=== PATIENT | male | born 1975 | race African-American/Black ===

== ENCOUNTER 2021-07-25 15:22 | Inpatient (IN) | payer OTHER ==
[2021-07-25 17:42] LABS: INR 1.1 (0.83-1.09); PROTHROMBIN TIME (PATIENT) 13.3 SEC (9.7-13.0)
[2021-07-25 17:44] LABS: BASO % 0.7 % (0-2.0); EOS % 6.2 % (0-4.5); LYMPH % 18.4 % (8-40); MCHC 32.3 g/dl (32.0-35.9); MEAN CELL VOLUME 86.5 fl (80-96); MEAN PLT VOLUME 9.1 fl (7.5-11.1); MONO % 14.8 % (3.8-10.2); NEUT % 59.9 % (42.8-82.8); PLATELET COUNT 220 10^3/uL (134-434); RBC 2.31 M/mm3 (4.00-5.60); RDW 18.3 % (11.9-15.9); WHITE BLOOD COUNT 5.8 K/mm3 (4.0-10.0)
[2021-07-25 17:46] LABS: HEMOGLOBIN 6.5 GM/dL (11.7-16.9)
[2021-07-25 17:55] LABS: CHLORIDE 101 mmol/L (98-107); SODIUM 139 mmol/L (136-145)
[2021-07-25 17:56] LABS: CALCIUM 9.8 mg/dL (8.5-10.1)
[2021-07-25 17:57] LABS: ALBUMIN 3.2 g/dl (3.4-5.0); ANION GAP 6 MMOL/L (8-16); CO2 32 mmol/L (21-32); GLUCOSE,RANDOM 140 mg/dL (74-106)
[2021-07-25 18:00] LABS: SGOT/AST 11 U/L (15-37); SGPT/ALT 25 U/L (13-61)
[2021-07-25 18:02] LABS: BILIRUBIN,TOTAL 0.3 mg/dL (0.2-1); TOT PROT 7.2 g/dl (6.4-8.2)
[2021-07-25 18:04] LABS: ALK PHOS 94 U/L (45-117); CREATININE 9.1 mg/dL (0.55-1.3)
[2021-07-25] MEDS ORDERED: METOPROLOL TARTRATE 50 MG TABLET (FP) PO ONE (19:49)
[2021-07-25] MEDS ORDERED: WARFARIN NA 3 MG TABLET PO SCH (20:00)
[2021-07-25] MEDS ORDERED: WARFARIN NA 1 MG TABLET ONE (20:16)
[2021-07-25] MEDS ORDERED: WARFARIN NA 5 MG TABLET ONE (20:16)
[2021-07-25] MEDS ORDERED: PANTOPRAZOLE 40 MG TABLET ONE (20:16)
[2021-07-25] MEDS ORDERED: LISINOPRIL 5 MG TABLET ONE (20:17)
[2021-07-25] MEDS ORDERED: METOPROLOL TARTRATE 50 MG TABLET (FP) ONE (20:17)
[2021-07-25] MEDS: LISINOPRIL 5 MG TABLET PO SCH (20:21)
[2021-07-25] MEDS: PANTOPRAZOLE 40 MG TABLET PO SCH (20:22)
[2021-07-25] MEDS: ATORVASTATIN CA 40 MG TABLET (FP) PO SCH (22:57)
[2021-07-26 05:56] VITALS: BMI 40.3
[2021-07-26] MEDS: INSULIN SLIDING SCALE (NOVOLOG) 1 VIAL SQ SCH ×3 (06:00→17:09)
[2021-07-26] MEDS ORDERED: INSULIN SLIDING SCALE (NOVOLOG) 1 VIAL SQ SCH (07:00)
[2021-07-26] MEDS ORDERED: glyBURIDE 5 MG TABLET PO SCH (07:00)
[2021-07-26] MEDS: PANTOPRAZOLE 40 MG TABLET PO SCH (09:18)
[2021-07-26] MEDS: LISINOPRIL 5 MG TABLET PO SCH (09:19)
[2021-07-26] MEDS ORDERED: SENNOSIDES 8.6MG TABLET (FP) PO PRN (09:31)
[2021-07-26] MEDS ORDERED: ASPIRIN 325 MG ENTERIC COATED TABLET (FP) PO SCH (10:00)
[2021-07-26] MEDS ORDERED: LISINOPRIL 5 MG TABLET PO SCH (10:00)
[2021-07-26] MEDS: POLYETHYLENE GLYCOL (HEALTHYLAX) 3350 17 GM PACKET PO SCH (11:02)
[2021-07-26] MEDS: SEVELAMER CARBONATE 800 MG TAB (FP) PO SCH ×2 (12:30→17:43)
[2021-07-26] MEDS: ASPIRIN COATED 81 MG TABLET.EC PO SCH (12:30)
[2021-07-26 13:21] LABS: BASO % 0.9 % (0-2.0); EOS % 7.8 % (0-4.5); HEMATOCRIT 23.5 % (35.4-49); HEMOGLOBIN 7.8 GM/dL (11.7-16.9); LYMPH % 18.2 % (8-40); MCH 28.2 pg (25.7-33.7); MEAN CELL VOLUME 85.4 fl (80-96); MONO % 13.8 % (3.8-10.2); NEUT % 59.3 % (42.8-82.8); PLATELET COUNT 218 10^3/uL (134-434); RBC 2.75 M/mm3 (4.00-5.60); RDW 18.5 % (11.9-15.9); WHITE BLOOD COUNT 6.7 K/mm3 (4.0-10.0)
[2021-07-26 14:05] LABS: CHLORIDE 101 mmol/L (98-107); SODIUM 138 mmol/L (136-145)
[2021-07-26 14:06] LABS: ANION GAP 7 MMOL/L (8-16); BLOOD UREA NITROGEN 50.8 mg/dL (7-18); CALCIUM 10.1 mg/dL (8.5-10.1); CO2 31 mmol/L (21-32)
[2021-07-26 14:07] LABS: GLUCOSE,RANDOM 105 mg/dL (74-106)
[2021-07-26 14:12] LABS: CREATININE 10.5 mg/dL (0.55-1.3)
[2021-07-26] MEDS ORDERED: WARFARIN NA 3 MG TABLET PO SCH (18:00)
[2021-07-26] MEDS: ATORVASTATIN CA 40 MG TABLET (FP) PO SCH (21:20)
[2021-07-27] MEDS: INSULIN SLIDING SCALE (NOVOLOG) 1 VIAL SQ SCH ×3 (06:03→16:43)
[2021-07-27] MEDS: SEVELAMER CARBONATE 800 MG TAB (FP) PO SCH ×3 (08:32→17:47)
[2021-07-27 09:33] LABS: BASO % 0.6 % (0-2.0); EOS % 7.4 % (0-4.5); HEMATOCRIT 21.2 % (35.4-49); LYMPH % 18.1 % (8-40); MCH 27.5 pg (25.7-33.7); MCHC 32.6 g/dl (32.0-35.9); MEAN CELL VOLUME 84.3 fl (80-96); MEAN PLT VOLUME 8.9 fl (7.5-11.1); MONO % 15.3 % (3.8-10.2); NEUT % 58.6 % (42.8-82.8); PLATELET COUNT 177 10^3/uL (134-434); RBC 2.51 M/mm3 (4.00-5.60); RDW 18.2 % (11.9-15.9); WHITE BLOOD COUNT 6.2 K/mm3 (4.0-10.0)
[2021-07-27 09:50] LABS: CHLORIDE 100 mmol/L (98-107); SODIUM 137 mmol/L (136-145)
[2021-07-27 09:53] LABS: BLOOD UREA NITROGEN 65.4 mg/dL (7-18); CALCIUM 9.4 mg/dL (8.5-10.1)
[2021-07-27 09:54] LABS: ANION GAP 7 MMOL/L (8-16); CO2 30 mmol/L (21-32); GLUCOSE,RANDOM 116 mg/dL (74-106); MAGNESIUM 2.7 mg/dL (1.8-2.4)
[2021-07-27 09:57] LABS: PHOSPHOROUS 6.4 mg/dL (2.5-4.9)
[2021-07-27 09:58] LABS: HEMOGLOBIN 6.9 GM/dL (11.7-16.9)
[2021-07-27 09:59] LABS: CREATININE 12.6 mg/dL (0.55-1.3)
[2021-07-27] MEDS ORDERED: SODIUM CHLORIDE 250 ML IV PRN (10:00)
[2021-07-27] MEDS ORDERED: EPOETIN ALFA-EPBX 20,000 UNIT/ML VIAL SQ ONE ×3 (10:00→10:45)
[2021-07-27] MEDS: POLYETHYLENE GLYCOL (HEALTHYLAX) 3350 17 GM PACKET PO SCH (10:15)
[2021-07-27] MEDS: PANTOPRAZOLE 40 MG TABLET PO SCH (10:15)
[2021-07-27] MEDS: ASPIRIN COATED 81 MG TABLET.EC PO SCH (10:15)
[2021-07-27] MEDS: LISINOPRIL 5 MG TABLET PO SCH (14:58)
[2021-07-27] MEDS: ATORVASTATIN CA 40 MG TABLET (FP) PO SCH (21:11)
[2021-07-28] MEDS: INSULIN SLIDING SCALE (NOVOLOG) 1 VIAL SQ SCH ×2 (06:09→11:11)
[2021-07-28 08:41] LABS: BASO % 0.5 % (0-2.0); EOS % 5.9 % (0-4.5); HEMOGLOBIN 8.7 GM/dL (11.7-16.9); LYMPH % 14.9 % (8-40); MCH 28.7 pg (25.7-33.7); MCHC 33.3 g/dl (32.0-35.9); MEAN PLT VOLUME 8.7 fl (7.5-11.1); MONO % 16.1 % (3.8-10.2); NEUT % 62.6 % (42.8-82.8); PLATELET COUNT 185 10^3/uL (134-434); RBC 3.02 M/mm3 (4.00-5.60); RDW 17.6 % (11.9-15.9)
[2021-07-28 09:09] LABS: CHLORIDE 102 mmol/L (98-107); SODIUM 140 mmol/L (136-145)
[2021-07-28] MEDS ORDERED: EPOETIN ALFA-EPBX 20,000 UNIT/ML VIAL SQ ONE (09:15)
[2021-07-28 09:25] LABS: ANION GAP 6 MMOL/L (8-16); CO2 32 mmol/L (21-32); GLUCOSE,RANDOM 113 mg/dL (74-106)
[2021-07-28 09:45] LABS: BLOOD UREA NITROGEN 36.9 mg/dL (7-18); CREATININE 8.8 mg/dL (0.55-1.3)
[2021-07-28] MEDS: SEVELAMER CARBONATE 800 MG TAB (FP) PO SCH ×2 (10:12→11:51)
[2021-07-28] MEDS: PANTOPRAZOLE 40 MG TABLET PO SCH (10:12)
[2021-07-28] MEDS: ASPIRIN COATED 81 MG TABLET.EC PO SCH (10:12)
[2021-07-28] MEDS: POLYETHYLENE GLYCOL (HEALTHYLAX) 3350 17 GM PACKET PO SCH (10:13)
[2021-07-28] MEDS: LISINOPRIL 5 MG TABLET PO SCH (10:13)
[2021-07-28 15:46] VITALS: BP 135/50; PULSE 74; TEMP 98.2
== END 2021-07-28 15:42 | DRG 811 ==
LOC: JER 15:22 → JERBED 18:18 → J5S 22:28
PROVIDERS: ADMIT Internal Medicine; ATTEND Internal Medicine
PROC: 30233N1 Transfusion of Nonautologous Red Blood Cells into Peripheral Vein, Percutaneous Approach (ICD-10-PCS; principal; 2021-07-25)
PROC: 5A1D70Z Performance of Urinary Filtration, Intermittent, Less than 6 Hours Per Day (ICD-10-PCS; 2021-07-27)
DX: D62 Acute posthemorrhagic anemia (principal); N18.6 End stage renal disease; Z68.41 Body mass index [BMI] 40.0-44.9, adult; I13.2 Hypertensive heart and chronic kidney disease with heart failure and with stage 5 chronic kidney disease, or end stage renal disease; E66.01 Morbid (severe) obesity due to excess calories; E11.22 Type 2 diabetes mellitus with diabetic chronic kidney disease; E78.5 Hyperlipidemia, unspecified; G47.33 Obstructive sleep apnea (adult) (pediatric); I50.9 Heart failure, unspecified; Z99.2 Dependence on renal dialysis
CPT/HCPCS: 36415; 36430; 71250-TC; 80048; 80053; 82272; 82728; 82962; 83540; 83550; 83735; 84100; 85025; 85610; 86803; 86850; 86900; 86901; 86922; 87340; 93005; 93010; 94660; 97116-GP; 97161-GP; 99285-25; C9803; P9058; U0003; U0005

== ENCOUNTER 2021-10-13 12:05 | Inpatient (IN) | payer OTHER ==
[2021-10-13 14:32] LABS: BASO % 0.5 % (0-2.0); EOS % 3.2 % (0-4.5); HEMATOCRIT 23.5 % (35.4-49); HEMOGLOBIN 7.5 GM/dL (11.7-16.9); LYMPH % 12.1 % (8-40); MCH 28.4 pg (25.7-33.7); MEAN CELL VOLUME 88.8 fl (80-96); MEAN PLT VOLUME 9.6 fl (7.5-11.1); MONO % 14.7 % (3.8-10.2); NEUT % 69.5 % (42.8-82.8); PLATELET COUNT 183 10^3/uL (134-434); RBC 2.65 M/mm3 (4.00-5.60); WHITE BLOOD COUNT 6.3 K/mm3 (4.0-10.0)
[2021-10-13 14:37] LABS: INR 3.73 (0.83-1.09); PROTHROMBIN TIME (PATIENT) 44.2 SEC (9.7-13.0)
[2021-10-13 14:56] LABS: CHLORIDE 100 mmol/L (98-107); SODIUM 140 mmol/L (136-145)
[2021-10-13 14:58] LABS: ALBUMIN 3.5 g/dl (3.4-5.0)
[2021-10-13 14:59] LABS: ANION GAP 6 MMOL/L (8-16); BLOOD UREA NITROGEN 48.3 mg/dL (7-18); CO2 35 mmol/L (21-32); GLUCOSE,RANDOM 53 mg/dL (74-106); MAGNESIUM 2.7 mg/dL (1.8-2.4)
[2021-10-13 15:01] LABS: SGPT/ALT 17 U/L (13-61)
[2021-10-13 15:02] LABS: SGOT/AST 8 U/L (15-37)
[2021-10-13 15:03] LABS: BILIRUBIN,TOTAL 0.4 mg/dL (0.2-1); TOT PROT 7.5 g/dl (6.4-8.2)
[2021-10-13 15:04] LABS: ALK PHOS 107 U/L (45-117)
[2021-10-13 15:07] LABS: CREATININE 10.5 mg/dL (0.55-1.3)
[2021-10-13] MEDS ORDERED: SENNOSIDES 8.6MG TABLET (FP) PO PRN (16:20)
[2021-10-13] MEDS ORDERED: PANTOPRAZOLE 40 MG TABLET ONE (17:49)
[2021-10-13] MEDS: INSULIN SLIDING SCALE (NOVOLOG) 1 VIAL SQ SCH (18:08)
[2021-10-13] MEDS: PANTOPRAZOLE 40 MG TABLET PO SCH (18:28)
[2021-10-13] MEDS: SEVELAMER CARBONATE 800 MG TAB (FP) PO SCH (18:28)
[2021-10-13] MEDS ORDERED: ATORVASTATIN CA 40 MG TABLET (FP) ONE (21:37)
[2021-10-13] MEDS ORDERED: FERROUS SO4 325 MG TABLET (FP) ONE (21:37)
[2021-10-13] MEDS: FERROUS GLUCONATE 324 MG TAB (FP) PO SCH (21:39)
[2021-10-13] MEDS: ATORVASTATIN CA 40 MG TABLET (FP) PO SCH (21:39)
[2021-10-13 21:52] LABS: BASO % 0.5 % (0-2.0); EOS % 2.2 % (0-4.5); HEMOGLOBIN 8.1 GM/dL (11.7-16.9); LYMPH % 11.9 % (8-40); MCH 28.6 pg (25.7-33.7); MCHC 32.4 g/dl (32.0-35.9); MEAN CELL VOLUME 88.1 fl (80-96); MEAN PLT VOLUME 9.1 fl (7.5-11.1); MONO % 14.4 % (3.8-10.2); PLATELET COUNT 175 10^3/uL (134-434); RBC 2.84 M/mm3 (4.00-5.60); RDW 16.7 % (11.9-15.9); WHITE BLOOD COUNT 7.7 K/mm3 (4.0-10.0)
[2021-10-14] MEDS: INSULIN SLIDING SCALE (NOVOLOG) 1 VIAL SQ SCH ×3 (06:19→17:08)
[2021-10-14] MEDS ORDERED: SODIUM CHLORIDE 250 ML IV PRN (06:46)
[2021-10-14] MEDS ORDERED: PT OWN MED DRAWER 7, Y5N ONE ×3 (09:11→16:19)
[2021-10-14] MEDS: FOLIC ACID 1 MG TABLET (FP) PO SCH (09:14)
[2021-10-14] MEDS: SEVELAMER CARBONATE 800 MG TAB (FP) PO SCH ×3 (09:14→17:23)
[2021-10-14] MEDS: PANTOPRAZOLE 40 MG TABLET PO SCH (09:15)
[2021-10-14] MEDS: FERROUS GLUCONATE 324 MG TAB (FP) PO SCH (09:20)
[2021-10-14] MEDS: POLYETHYLENE GLYCOL (HEALTHYLAX) 3350 17 GM PACKET PO SCH (09:21)
[2021-10-14] MEDS ORDERED: ASPIRIN COATED 81 MG TABLET.EC PO SCH (10:00)
[2021-10-14 11:07] LABS: BASO % 0.4 % (0-2.0); EOS % 2.7 % (0-4.5); HEMATOCRIT 22.7 % (35.4-49); HEMOGLOBIN 7.4 GM/dL (11.7-16.9); LYMPH % 9.7 % (8-40); MCH 28.2 pg (25.7-33.7); MCHC 32.6 g/dl (32.0-35.9); MEAN CELL VOLUME 86.6 fl (80-96); MEAN PLT VOLUME 9.2 fl (7.5-11.1); MONO % 16.4 % (3.8-10.2); NEUT % 70.8 % (42.8-82.8); PLATELET COUNT 163 10^3/uL (134-434); RBC 2.62 M/mm3 (4.00-5.60); WHITE BLOOD COUNT 7.2 K/mm3 (4.0-10.0)
[2021-10-14 11:14] LABS: INR 3.21 (0.83-1.09); PROTHROMBIN TIME (PATIENT) 36.4 SEC (9.7-13.0)
[2021-10-14 11:29] LABS: CHLORIDE 98 mmol/L (98-107); SODIUM 138 mmol/L (136-145)
[2021-10-14 11:31] LABS: CALCIUM 9.4 mg/dL (8.5-10.1)
[2021-10-14 11:32] LABS: ALBUMIN 3.2 g/dl (3.4-5.0); ANION GAP 8 MMOL/L (8-16); CO2 31 mmol/L (21-32); GLUCOSE,RANDOM 108 mg/dL (74-106)
[2021-10-14 11:35] LABS: PHOSPHOROUS 7.6 mg/dL (2.5-4.9); SGOT/AST 7 U/L (15-37); SGPT/ALT 14 U/L (13-61)
[2021-10-14 11:36] LABS: BILIRUBIN,TOTAL 0.3 mg/dL (0.2-1); IRON SERUM 30 ug/dL (50-175); TOT PROT 7.1 g/dl (6.4-8.2); TOTAL IRON BINDING CAPACITY 143 ug/dL (250-450)
[2021-10-14 11:37] LABS: ALK PHOS 103 U/L (45-117)
[2021-10-14 11:39] LABS: CREATININE 12.6 mg/dL (0.55-1.3)
[2021-10-14] MEDS ORDERED: EPOETIN ALFA-EPBX 20,000 UNIT/ML VIAL SQ ONE (12:15)
[2021-10-14] MEDS: LISINOPRIL 5 MG TABLET PO SCH (16:20)
[2021-10-14] MEDS ORDERED: WARFARIN NA 7.5 MG TABLET PO ONE (18:00)
[2021-10-14] MEDS: ATORVASTATIN CA 40 MG TABLET (FP) PO SCH (21:42)
[2021-10-15] MEDS: INSULIN SLIDING SCALE (NOVOLOG) 1 VIAL SQ SCH ×3 (06:39→16:49)
[2021-10-15] MEDS: SEVELAMER CARBONATE 800 MG TAB (FP) PO SCH ×3 (08:32→19:30)
[2021-10-15] MEDS ORDERED: PT OWN MED DRAWER 7, Y5N ONE ×2 (09:43→19:27)
[2021-10-15] MEDS: PANTOPRAZOLE 40 MG TABLET PO SCH (09:49)
[2021-10-15] MEDS: FOLIC ACID 1 MG TABLET (FP) PO SCH (09:49)
[2021-10-15] MEDS: LISINOPRIL 5 MG TABLET PO SCH (09:49)
[2021-10-15] MEDS: POLYETHYLENE GLYCOL (HEALTHYLAX) 3350 17 GM PACKET PO SCH (09:49)
[2021-10-15 10:44] LABS: BASO % 0.5 % (0-2.0); EOS % 3.1 % (0-4.5); HEMATOCRIT 27.1 % (35.4-49); HEMOGLOBIN 8.7 GM/dL (11.7-16.9); MCH 28.4 pg (25.7-33.7); MCHC 32.2 g/dl (32.0-35.9); MEAN CELL VOLUME 88.3 fl (80-96); MEAN PLT VOLUME 9.1 fl (7.5-11.1); MONO % 18.5 % (3.8-10.2); NEUT % 67.9 % (42.8-82.8); PLATELET COUNT 172 10^3/uL (134-434); RBC 3.07 M/mm3 (4.00-5.60); RDW 16.7 % (11.9-15.9); WHITE BLOOD COUNT 7.6 K/mm3 (4.0-10.0)
[2021-10-15 10:50] LABS: INR 2.26 (0.83-1.09); PROTHROMBIN TIME (PATIENT) 26.7 SEC (9.7-13.0)
[2021-10-15 11:29] LABS: ALBUMIN 3.4 g/dl (3.4-5.0); ALK PHOS 122 U/L (45-117); ANION GAP 10 MMOL/L (8-16); BILIRUBIN,TOTAL 0.4 mg/dL (0.2-1); BLOOD UREA NITROGEN 51.2 mg/dL (7-18); CALCIUM 10.2 mg/dL (8.5-10.1); CHLORIDE 95 mmol/L (98-107); CO2 31 mmol/L (21-32); CREATININE 9.6 mg/dL (0.55-1.3); GLUCOSE,RANDOM 134 mg/dL (74-106); PHOSPHOROUS 6.5 mg/dL (2.5-4.9); SGOT/AST 8 U/L (15-37); SGPT/ALT 18 U/L (13-61); SODIUM 135 mmol/L (136-145)
[2021-10-15] MEDS ORDERED: SODIUM POLYSTYRENE SULFONATE 15 GM/60 ML BOTTLE PO ONE (12:15)
[2021-10-15] MEDS ORDERED: SODIUM ZIRCONIUM CYCLOSILICATE (LOKELMA) 5 GM PACKET PO ONE (14:15)
[2021-10-15 14:23] LABS: CHLORIDE 96 mmol/L (98-107); SODIUM 135 mmol/L (136-145)
[2021-10-15 14:24] LABS: CALCIUM 9.8 mg/dL (8.5-10.1)
[2021-10-15 14:25] LABS: ANION GAP 9 MMOL/L (8-16); BLOOD UREA NITROGEN 51.7 mg/dL (7-18); CO2 30 mmol/L (21-32); GLUCOSE,RANDOM 161 mg/dL (74-106)
[2021-10-15 14:30] LABS: CREATININE 9.7 mg/dL (0.55-1.3)
[2021-10-15] MEDS ORDERED: SODIUM CHLORIDE 250 ML IV PRN (15:14)
[2021-10-15] MEDS ORDERED: EPOETIN ALFA-EPBX 20,000 UNIT/ML VIAL IVPUSH ONE (15:15)
[2021-10-15] MEDS ORDERED: WARFARIN NA 5 MG TABLET PO ONE (18:00)
[2021-10-15] MEDS ORDERED: INSULIN (NOVOLOG) ASPART 100 UNITS/ML 10ML VIAL ONE (19:27)
[2021-10-15 19:52] LABS: CALCIUM 9.5 mg/dL (8.5-10.1)
[2021-10-15 19:58] LABS: BLOOD UREA NITROGEN 22.9 mg/dL (7-18)
[2021-10-15] MEDS: ATORVASTATIN CA 40 MG TABLET (FP) PO SCH (21:29)
[2021-10-16] MEDS: INSULIN SLIDING SCALE (NOVOLOG) 1 VIAL SQ SCH ×2 (06:25→17:00)
[2021-10-16] MEDS ORDERED: SODIUM CHLORIDE 250 ML IV PRN (09:15)
[2021-10-16] MEDS ORDERED: EPOETIN ALFA-EPBX 20,000 UNIT/ML VIAL IVPUSH ONE (10:00)
[2021-10-16 10:41] LABS: BASO % 0.5 % (0-2.0); EOS % 3.2 % (0-4.5); HEMATOCRIT 25.8 % (35.4-49); HEMOGLOBIN 8.5 GM/dL (11.7-16.9); LYMPH % 11.2 % (8-40); MCHC 33.1 g/dl (32.0-35.9); MEAN CELL VOLUME 87.5 fl (80-96); MEAN PLT VOLUME 9.5 fl (7.5-11.1); MONO % 18.2 % (3.8-10.2); NEUT % 66.9 % (42.8-82.8); PLATELET COUNT 170 10^3/uL (134-434); RBC 2.95 M/mm3 (4.00-5.60); RDW 16.1 % (11.9-15.9); WHITE BLOOD COUNT 8.1 K/mm3 (4.0-10.0)
[2021-10-16 10:56] LABS: INR 2.49 (0.83-1.09); PROTHROMBIN TIME (PATIENT) 28.1 SEC (9.7-13.0)
[2021-10-16 11:08] LABS: CHLORIDE 96 mmol/L (98-107); SODIUM 134 mmol/L (136-145)
[2021-10-16 11:12] LABS: ANION GAP 6 MMOL/L (8-16); BLOOD UREA NITROGEN 42.6 mg/dL (7-18); CO2 31 mmol/L (21-32); GLUCOSE,RANDOM 161 mg/dL (74-106)
[2021-10-16 11:13] LABS: CREATININE 8.4 mg/dL (0.55-1.3)
[2021-10-16 13:55] VITALS: BMI 43.0
[2021-10-16] MEDS: FOLIC ACID 1 MG TABLET (FP) PO SCH (14:49)
[2021-10-16] MEDS: PANTOPRAZOLE 40 MG TABLET PO SCH (14:51)
[2021-10-16] MEDS: LISINOPRIL 5 MG TABLET PO SCH (14:51)
[2021-10-16] MEDS: SEVELAMER CARBONATE 800 MG TAB (FP) PO SCH ×3 (14:52→17:01)
[2021-10-16] MEDS: POLYETHYLENE GLYCOL (HEALTHYLAX) 3350 17 GM PACKET PO SCH (14:52)
[2021-10-16] MEDS ORDERED: WARFARIN NA 7.5 MG TABLET PO ONE (18:00)
[2021-10-16] MEDS: ATORVASTATIN CA 40 MG TABLET (FP) PO SCH (21:25)
[2021-10-17] MEDS: INSULIN SLIDING SCALE (NOVOLOG) 1 VIAL SQ SCH ×2 (06:14→17:45)
[2021-10-17] MEDS: SEVELAMER CARBONATE 800 MG TAB (FP) PO SCH ×3 (08:51→17:44)
[2021-10-17] MEDS: FOLIC ACID 1 MG TABLET (FP) PO SCH (09:55)
[2021-10-17] MEDS: POLYETHYLENE GLYCOL (HEALTHYLAX) 3350 17 GM PACKET PO SCH (09:55)
[2021-10-17] MEDS: PANTOPRAZOLE 40 MG TABLET PO SCH (09:55)
[2021-10-17] MEDS: LISINOPRIL 5 MG TABLET PO SCH (09:55)
[2021-10-17 13:30] LABS: BASO % 0.5 % (0-2.0); EOS % 3.4 % (0-4.5); HEMATOCRIT 27.7 % (35.4-49); HEMOGLOBIN 9.1 GM/dL (11.7-16.9); LYMPH % 14.4 % (8-40); MCHC 32.7 g/dl (32.0-35.9); MEAN CELL VOLUME 88.6 fl (80-96); MEAN PLT VOLUME 9.4 fl (7.5-11.1); MONO % 14.8 % (3.8-10.2); NEUT % 66.9 % (42.8-82.8); PLATELET COUNT 188 10^3/uL (134-434); RBC 3.13 M/mm3 (4.00-5.60); RDW 16.2 % (11.9-15.9); WHITE BLOOD COUNT 6.7 K/mm3 (4.0-10.0)
[2021-10-17 13:37] LABS: INR 2.78 (0.83-1.09); PROTHROMBIN TIME (PATIENT) 32.9 SEC (9.7-13.0)
[2021-10-17 13:54] LABS: CHLORIDE 95 mmol/L (98-107); SODIUM 135 mmol/L (136-145)
[2021-10-17 14:03] LABS: ANION GAP 8 MMOL/L (8-16); CALCIUM 10.2 mg/dL (8.5-10.1); CO2 32 mmol/L (21-32); GLUCOSE,RANDOM 150 mg/dL (74-106)
[2021-10-17 14:07] LABS: PHOSPHOROUS 6.7 mg/dL (2.5-4.9)
[2021-10-17 14:21] LABS: CREATININE 8.6 mg/dL (0.55-1.3)
[2021-10-17] MEDS ORDERED: INSULIN (NOVOLOG) ASPART 100 UNITS/ML 10ML VIAL ONE (17:40)
[2021-10-17] MEDS ORDERED: WARFARIN NA 3 MG TABLET PO ONE (18:00)
[2021-10-17] MEDS: ATORVASTATIN CA 40 MG TABLET (FP) PO SCH (21:32)
[2021-10-18] MEDS: INSULIN SLIDING SCALE (NOVOLOG) 1 VIAL SQ SCH ×2 (06:09→16:48)
[2021-10-18 08:03] LABS: BASO % 0.4 % (0-2.0); EOS % 3.2 % (0-4.5); HEMATOCRIT 25.5 % (35.4-49); HEMOGLOBIN 8.3 GM/dL (11.7-16.9); LYMPH % 12.9 % (8-40); MCH 28.7 pg (25.7-33.7); MCHC 32.5 g/dl (32.0-35.9); MEAN CELL VOLUME 88.5 fl (80-96); MEAN PLT VOLUME 9.7 fl (7.5-11.1); MONO % 15.9 % (3.8-10.2); NEUT % 67.6 % (42.8-82.8); PLATELET COUNT 207 10^3/uL (134-434); RBC 2.89 M/mm3 (4.00-5.60); RDW 16.5 % (11.9-15.9); WHITE BLOOD COUNT 7.5 K/mm3 (4.0-10.0)
[2021-10-18 08:12] LABS: INR 3.86 (0.83-1.09); PROTHROMBIN TIME (PATIENT) 43.8 SEC (9.7-13.0)
[2021-10-18 08:16] LABS: CHLORIDE 98 mmol/L (98-107); SODIUM 136 mmol/L (136-145)
[2021-10-18 08:21] LABS: CALCIUM 9.8 mg/dL (8.5-10.1)
[2021-10-18 08:22] LABS: BLOOD UREA NITROGEN 64.8 mg/dL (7-18); CO2 32 mmol/L (21-32); GLUCOSE,RANDOM 111 mg/dL (74-106)
[2021-10-18 08:35] LABS: ANION GAP 6 MMOL/L (8-16); CREATININE 11.1 mg/dL (0.55-1.3)
[2021-10-18] MEDS ORDERED: SODIUM POLYSTYRENE SULFONATE 15 GM/60 ML BOTTLE PO ONE (09:30)
[2021-10-18] MEDS: POLYETHYLENE GLYCOL (HEALTHYLAX) 3350 17 GM PACKET PO SCH (10:19)
[2021-10-18] MEDS: SEVELAMER CARBONATE 800 MG TAB (FP) PO SCH ×3 (10:19→17:57)
[2021-10-18] MEDS: PANTOPRAZOLE 40 MG TABLET PO SCH (10:19)
[2021-10-18] MEDS: FOLIC ACID 1 MG TABLET (FP) PO SCH (10:19)
[2021-10-18] MEDS: ATORVASTATIN CA 40 MG TABLET (FP) PO SCH (21:22)
[2021-10-19] MEDS: INSULIN SLIDING SCALE (NOVOLOG) 1 VIAL SQ SCH ×2 (06:49→17:27)
[2021-10-19] MEDS: SEVELAMER CARBONATE 800 MG TAB (FP) PO SCH ×3 (08:07→17:26)
[2021-10-19] MEDS ORDERED: EPOETIN ALFA 10,000 UNIT/1 ML VIAL SQ ONE (08:55)
[2021-10-19] MEDS ORDERED: SODIUM CHLORIDE 250 ML IV PRN (08:59)
[2021-10-19] MEDS ORDERED: EPOETIN ALFA-EPBX 20,000 UNIT/ML VIAL IVPUSH ONE (10:00)
[2021-10-19 11:40] LABS: BASO % 0.3 % (0-2.0); EOS % 3.2 % (0-4.5); HEMATOCRIT 24.7 % (35.4-49); HEMOGLOBIN 7.9 GM/dL (11.7-16.9); MCH 28.4 pg (25.7-33.7); MEAN CELL VOLUME 88.7 fl (80-96); MEAN PLT VOLUME 9.8 fl (7.5-11.1); MONO % 16.3 % (3.8-10.2); NEUT % 70.2 % (42.8-82.8); PLATELET COUNT 208 10^3/uL (134-434); RBC 2.78 M/mm3 (4.00-5.60); RDW 16.1 % (11.9-15.9); WHITE BLOOD COUNT 6.6 K/mm3 (4.0-10.0)
[2021-10-19 11:50] LABS: ANION GAP 10 MMOL/L (8-16); CALCIUM 9.4 mg/dL (8.5-10.1); CHLORIDE 96 mmol/L (98-107); CO2 29 mmol/L (21-32); SODIUM 135 mmol/L (136-145)
[2021-10-19 11:51] LABS: INR 3.06 (0.83-1.09); PROTHROMBIN TIME (PATIENT) 36.2 SEC (9.7-13.0)
[2021-10-19 11:52] LABS: BLOOD UREA NITROGEN 84.9 mg/dL (7-18); GLUCOSE,RANDOM 141 mg/dL (74-106)
[2021-10-19 11:57] LABS: CREATININE 13.4 mg/dL (0.55-1.3)
[2021-10-19] MEDS: POLYETHYLENE GLYCOL (HEALTHYLAX) 3350 17 GM PACKET PO SCH (15:35)
[2021-10-19] MEDS: PANTOPRAZOLE 40 MG TABLET PO SCH (15:36)
[2021-10-19] MEDS: FOLIC ACID 1 MG TABLET (FP) PO SCH (15:36)
[2021-10-19] MEDS: SODIUM ZIRCONIUM CYCLOSILICATE (LOKELMA) 5 GM PACKET PO SCH (16:31)
[2021-10-19] MEDS ORDERED: INSULIN (NOVOLOG) ASPART 100 UNITS/ML 10ML VIAL ONE (17:36)
[2021-10-19] MEDS ORDERED: WARFARIN NA 7.5 MG TABLET PO ONE (18:00)
[2021-10-19] MEDS: ATORVASTATIN CA 40 MG TABLET (FP) PO SCH (21:20)
[2021-10-20] MEDS: INSULIN SLIDING SCALE (NOVOLOG) 1 VIAL SQ SCH ×2 (06:03→16:46)
[2021-10-20 09:04] LABS: BASO % 0.5 % (0-2.0); EOS % 2.9 % (0-4.5); HEMATOCRIT 24.6 % (35.4-49); HEMOGLOBIN 7.9 GM/dL (11.7-16.9); MCH 28.9 pg (25.7-33.7); MEAN CELL VOLUME 90.4 fl (80-96); MEAN PLT VOLUME 9.3 fl (7.5-11.1); MONO % 18.9 % (3.8-10.2); NEUT % 63.7 % (42.8-82.8); PLATELET COUNT 202 10^3/uL (134-434); RBC 2.72 M/mm3 (4.00-5.60); RDW 16.3 % (11.9-15.9); WHITE BLOOD COUNT 5.7 K/mm3 (4.0-10.0)
[2021-10-20 09:08] LABS: INR 2.15 (0.83-1.09); PROTHROMBIN TIME (PATIENT) 24.3 SEC (9.7-13.0)
[2021-10-20] MEDS: SEVELAMER CARBONATE 800 MG TAB (FP) PO SCH ×3 (09:55→16:46)
[2021-10-20] MEDS: FOLIC ACID 1 MG TABLET (FP) PO SCH (09:56)
[2021-10-20] MEDS: POLYETHYLENE GLYCOL (HEALTHYLAX) 3350 17 GM PACKET PO SCH (09:57)
[2021-10-20] MEDS: SODIUM ZIRCONIUM CYCLOSILICATE (LOKELMA) 5 GM PACKET PO SCH (09:57)
[2021-10-20] MEDS: PANTOPRAZOLE 40 MG TABLET PO SCH (09:57)
[2021-10-20 10:22] LABS: ANION GAP 4 MMOL/L (8-16); BLOOD UREA NITROGEN 51.6 mg/dL (7-18); CHLORIDE 103 mmol/L (98-107); CO2 35 mmol/L (21-32); CREATININE 9.7 mg/dL (0.55-1.3); GLUCOSE,RANDOM 121 mg/dL (74-106); SODIUM 143 mmol/L (136-145)
[2021-10-20] MEDS ORDERED: WARFARIN NA 7.5 MG TABLET PO ONE (18:00)
[2021-10-20] MEDS: ATORVASTATIN CA 40 MG TABLET (FP) PO SCH (20:59)
[2021-10-20 22:14] VITALS: BP 170/91; PULSE 71; TEMP 98.5
== END 2021-10-20 09:30 | disposition home or self-care (01) | DRG 813 ==
LOC: JER 12:05 → JERBED 15:22 → J8W 10-14 01:34
PROVIDERS: ADMIT Internal Medicine; ATTEND Internal Medicine
PROC: 30233N1 Transfusion of Nonautologous Red Blood Cells into Peripheral Vein, Percutaneous Approach (ICD-10-PCS; 2021-10-13)
PROC: 5A1D70Z Performance of Urinary Filtration, Intermittent, Less than 6 Hours Per Day (ICD-10-PCS; principal; 2021-10-14)
PROC: 5A1D70Z Performance of Urinary Filtration, Intermittent, Less than 6 Hours Per Day (ICD-10-PCS; 2021-10-15)
PROC: 5A1D70Z Performance of Urinary Filtration, Intermittent, Less than 6 Hours Per Day (ICD-10-PCS; 2021-10-16)
PROC: 5A1D70Z Performance of Urinary Filtration, Intermittent, Less than 6 Hours Per Day (ICD-10-PCS; 2021-10-19)
DX: D68.32 Hemorrhagic disorder due to extrinsic circulating anticoagulants (principal); N18.6 End stage renal disease; D62 Acute posthemorrhagic anemia; Z68.41 Body mass index [BMI] 40.0-44.9, adult; I12.0 Hypertensive chronic kidney disease with stage 5 chronic kidney disease or end stage renal disease; E66.01 Morbid (severe) obesity due to excess calories; T45.515A Adverse effect of anticoagulants, initial encounter; D63.1 Anemia in chronic kidney disease; E78.5 Hyperlipidemia, unspecified; G47.33 Obstructive sleep apnea (adult) (pediatric); E11.22 Type 2 diabetes mellitus with diabetic chronic kidney disease; M62.81 Muscle weakness (generalized); E88.81 Metabolic syndrome and other insulin resistance; E87.5 Hyperkalemia; R26.81 Unsteadiness on feet; K59.00 Constipation, unspecified; Z99.2 Dependence on renal dialysis; E83.39 Other disorders of phosphorus metabolism; Z96.651 Presence of right artificial knee joint
CPT/HCPCS: 36415; 36430; 36511; 80048; 80053; 82728; 82962; 83540; 83550; 83735; 84100; 85025; 85610; 85730; 86803; 86850; 86900; 86901; 86922; 87340; 93005; 93010; 93990-TC; 94660; 97116-GP; 97161-GP; 99285-25; C9803; P9016; P9038; P9058; U0003; U0005